=== PATIENT | female | born 1960 | race Caucasian/White ===

== ENCOUNTER 2017-04-19 21:13 | Emergency (ER) | payer OTHER ==
[~2017-04-19 21:13] MED LIST: COLACE100 MG PO; ECO81 PO; LIPI10 PO; MOTRIN800 MG PO; NORCO1 TA2 PO; ZES10 PO
[2017-04-19 21:21] VITALS: BP 134/83
== END 2017-04-19 22:50 | disposition home or self-care (01) ==
LOC: ED 21:13
DX: S61.411A Laceration without foreign body of right hand, initial encounter (principal); X58.XXXA Exposure to other specified factors, initial encounter; Y93.89 Activity, other specified; Y92.89 Other specified places as the place of occurrence of the external cause; Y99.8 Other external cause status; R03.0 Elevated blood-pressure reading, without diagnosis of hypertension
CPT/HCPCS: 90715; J2001